=== PATIENT | female | born 1950 | race Caucasian/White ===

== ENCOUNTER 2019-02-08 09:08 | Emergency (ER) | payer OTHER ==
[~2019-02-08] VITALS: Ht 149.9 cm; Wt 50.3 kg
[2019-02-08 10:59] VITALS: BP 142/84
== END 2019-02-08 10:59 | disposition home or self-care (01) ==
LOC: ED 09:08
DX: L08.9 Local infection of the skin and subcutaneous tissue, unspecified (principal); M79.644 Pain in right finger(s); M79.89 Other specified soft tissue disorders
CPT/HCPCS: Q0092